=== PATIENT | female | born 1965 | race Caucasian/White ===

== ENCOUNTER 2022-03-13 10:16 | Outpatient (CLI) | payer OTHER | END 2022-03-13 10:17 | disposition home or self-care (01) | LOC: CSHCT 10:16 | PROVIDERS: ATTEND Internal Medicine | DX: Z12.2 Encounter for screening for malignant neoplasm of respiratory organs (principal); F17.210 Nicotine dependence, cigarettes, uncomplicated | CPT/HCPCS: 71271 ==